=== PATIENT | male | born 1980 | race Hispanic/Latino ===

== ENCOUNTER 2021-12-31 10:36 | Outpatient (CLI) | payer OTHER ==
[2021-12-31] MEDS ORDERED: Iopamidol 370 76% 100 ML VIAL ONE (13:56)
== END 2021-12-31 10:37 | disposition home or self-care (01) ==
LOC: BICCT 10:36
PROVIDERS: ATTEND Student in an Organized Health Care Education/Training Program
DX: K63.89 Other specified diseases of intestine (principal)
CPT/HCPCS: 74177; 82565; Q9967

== ENCOUNTER 2022-03-16 06:09 | Day surgery (SDC) | payer BC ==
[2022-03-15 15:46] VITALS: BMI 27.3
[2022-03-16] MEDS ORDERED: Acetaminophen 500 MG TAB ONE (06:24)
[2022-03-16] MEDS ORDERED: Ketorolac Tromethamine 30 MG/ML VIAL ONE (06:24)
[2022-03-16] MEDS ORDERED: Propofol 500 MG/50 ML VIAL ONE (06:41)
[2022-03-16] MEDS ORDERED: fentaNYL PF 100 MCG/2 ML SYRINGE ONE (06:41)
[2022-03-16] MEDS ORDERED: Lidocaine 1% (PF) 30 ML VIAL ONE (06:42)
[2022-03-16] MEDS ORDERED: Bupivacaine/Epinephrine 0.25% 30 ML VIAL ONE (06:42)
[2022-03-16] MEDS ORDERED: Lidocaine 2% 6 ML SYR ONE (06:53)
[2022-03-16 07:16] LABS: #Eosinphils 0.4 thou/uL (0.0-0.7); #Monocytes 0.5 thou/uL (0.11-0.59); #Neutrophils 4.1 thou/uL (1.40-6.50); %Basophils 0.7 % (0.0-1.0); %Eosinophils 5.8 % (0.0-10.0); %Monocytes 6.7 % (0.0-10.0); %Neutrophils 58.8 % (42.0-75.0); Mean Corpuscular HGB CONC 32.2 g/dL (32.0-36.0); Mean Corpuscular Hemoglobin 27.8 pg (27.0-31.0); Mean Corpuscular Volume 86.4 fl (78.0-98.0); Mean Platelet Volume 9.6 fL (7.4-10.4); Platelet Count 223 thou/uL (130-400); RBC Distribution Width 14.4 % (11.5-14.5); Red Blood Cell (RBC) Count 4.32 mill/uL (4.70-6.10)
[2022-03-16] MEDS ORDERED: Sodium Chloride 0.9% 100 ML ONE (07:20)
[2022-03-16] MEDS ORDERED: CEFAZOLIN 2 GM VIAL ONE (07:20)
[2022-03-16 07:35] LABS: Anion Gap 10 mmol/L (10-20); BUN (Urea Nitrogen) 16 mg/dL (8.9-20.6); Calc. Creatinine Clearance 119 mL/min (70-130); Calcium 9.4 mg/dL (7.8-10.44); Carbon Dioxide 26 mmol/L (22-29); Chloride 103 mmol/L (98-107); Estimated GFR 108; Glucose 251 mg/dL (70-105); Potassium 4.4 mmol/L (3.5-5.1); Sodium 135 mmol/L (136-145)
== END 2022-03-16 09:11 | disposition home or self-care (01) ==
LOC: SDC 06:09
PROVIDERS: ATTEND Specialist
PROC: 02HV33Z Insertion of Infusion Device into Superior Vena Cava, Percutaneous Approach (ICD-10-PCS; principal; 2022-03-16)
PROC: 0JH60WZ Insertion of Totally Implantable Vascular Access Device into Chest Subcutaneous Tissue and Fascia, Open Approach (ICD-10-PCS; principal; 2022-03-16)
DX: C18.7 Malignant neoplasm of sigmoid colon (principal); Z79.84 Long term (current) use of oral hypoglycemic drugs
CPT/HCPCS: 71045; 80048; 85025; C1788; J1642; J1885; J2001; J2704; J3490

== ENCOUNTER 2022-09-15 14:58 | Outpatient (CLI) | payer BC ==
[2022-09-15 17:46] LABS: #Eosinphils 0.2 10x3/uL (0.0-0.5); #Monocytes 0.4 10x3/uL (0.0-1.1); %Basophils 0.4 % (0.0-2.0); %Eosinophils 3.3 % (0.0-6.0); %Lymphocytes 28.3 % (18.0-47.0); %Monocytes 8.4 % (0.0-10.0); %Neutrophils 59.2 % (40.0-75.0); Hemoglobin 14.9 g/dL (13.5-17.5); Mean Corpuscular HGB CONC 35.4 g/dL (32.0-36.0); Mean Corpuscular Hemoglobin 32.6 pg (27.0-33.0); Mean Corpuscular Volume 92.1 fl (81.2-95.1); Mean Platelet Volume 11.2 fl (7.4-10.4); Platelet Count 161 10x3/uL (150-450); RBC Distribution Width 11.7 % (11.5-14.5); Red Blood Cell (RBC) Count 4.57 10x6/uL (4.32-5.72); White Blood Cell (WBC) Count 5.1 10x3/uL (3.5-10.5)
[2022-09-15 17:54] LABS: Anion Gap 15 mmol/L (10-20); BUN (Urea Nitrogen) 13 mg/dL (8.9-20.6); Calc. Creatinine Clearance 0 mL/min (70-130); Calcium 9.3 mg/dL (7.8-10.44); Carbon Dioxide 24 mmol/L (22-29); Chloride 101 mmol/L (98-107); Estimated GFR 106; Glucose 359 mg/dL (70-105); Potassium 4.5 mmol/L (3.5-5.1); Sodium 135 mmol/L (136-145)
[2022-09-16 13:22] LABS: Hemoglobin A1c 9.4 % (4.0-6.0)
== END 2022-09-15 14:59 | disposition home or self-care (01) ==
LOC: LABBT 14:58
PROVIDERS: ATTEND Specialist
DX: Z01.818 Encounter for other preprocedural examination (principal); C18.7 Malignant neoplasm of sigmoid colon
CPT/HCPCS: 80048; 83036; 85025; 93005; 93010

== ENCOUNTER 2023-01-11 07:46 | Outpatient (CLI) | payer BC ==
[2023-01-11] MEDS ORDERED: MD-Gastroview 120 ML BOT ONE (11:23)
== END 2023-01-11 07:47 | disposition home or self-care (01) ==
LOC: RAD 07:46
PROVIDERS: ATTEND Specialist
DX: Z48.815 Encounter for surgical aftercare following surgery on the digestive system (principal); Z93.3 Colostomy status
CPT/HCPCS: 74280; Q9963

== ENCOUNTER 2023-03-09 12:14 | Outpatient (CLI) | payer BC ==
[2023-03-09 13:57] LABS: #Eosinphils 0.2 10x3/uL (0.0-0.5); #Monocytes 0.4 10x3/uL (0.0-1.1); #Neutrophils 3.6 10x3/uL (1.5-8.4); %Basophils 0.4 % (0.0-2.0); %Eosinophils 2.6 % (0.0-6.0); %Lymphocytes 26.6 % (18.0-47.0); %Monocytes 7.6 % (0.0-10.0); %Neutrophils 62.4 % (40.0-75.0); Hematocrit 42.7 % (38.8-50.0); Hemoglobin 15.3 g/dL (13.5-17.5); Mean Corpuscular HGB CONC 35.8 g/dL (32.0-36.0); Mean Corpuscular Hemoglobin 32.1 pg (27.0-33.0); Mean Corpuscular Volume 89.5 fl (81.2-95.1); Mean Platelet Volume 10.9 fl (7.4-10.4); Platelet Count 181 10x3/uL (150-450); RBC Distribution Width 11.6 % (11.5-14.5); Red Blood Cell (RBC) Count 4.77 10x6/uL (4.32-5.72); White Blood Cell (WBC) Count 5.7 10x3/uL (3.5-10.5)
[2023-03-09 14:10] LABS: Anion Gap 14 mmol/L (10-20); BUN (Urea Nitrogen) 15 mg/dL (8.9-20.6); Calc. Creatinine Clearance 0 mL/min (70-130); Calcium 9.4 mg/dL (7.8-10.44); Carbon Dioxide 24 mmol/L (22-29); Chloride 105 mmol/L (98-107); Estimated GFR 112; Glucose 162 mg/dL (70-105); Potassium 4.3 mmol/L (3.5-5.1); Sodium 139 mmol/L (136-145)
[2023-03-09 20:33] LABS: Hemoglobin A1c 6.5 % (4.0-6.0)
== END 2023-03-09 12:15 | disposition home or self-care (01) ==
LOC: LABBT 12:14
PROVIDERS: ATTEND Specialist
DX: Z01.812 Encounter for preprocedural laboratory examination (principal); Z93.3 Colostomy status
CPT/HCPCS: 80048; 83036; 85025

== ENCOUNTER 2023-03-09 12:30 | Inpatient (IN) | payer BC ==
[2023-03-14] MEDS ORDERED: Midazolam HCl 2 mg/2 ml Vial ONE (11:17)
[2023-03-14] MEDS ORDERED: fentaNYL 50 mcg/mL 1 mL Vial ONE ×3 (11:17→15:37)
[2023-03-14] MEDS ORDERED: Bupivacaine 0.25% HCL 30 ML VIAL ONE ×2 (11:18→12:47)
[2023-03-14] MEDS ORDERED: Acetaminophen 500 MG TAB ONE (11:21)
[2023-03-14] MEDS ORDERED: Ketorolac Tromethamine 30 MG/ML VIAL ONE (11:21)
[2023-03-14] MEDS ORDERED: EPINEPHrine 1 MG/ML VIAL ONE (12:46)
[2023-03-14] MEDS ORDERED: Fentanyl 250 MCG/5 ML VIAL ONE (12:48)
[2023-03-14] MEDS ORDERED: SUGAMMADEX SODIUM 200 MG/2 ML VIAL ONE (12:49)
[2023-03-14] MEDS ORDERED: Sodium Chloride 0.9% 100 ML ONE (12:54)
[2023-03-14] MEDS ORDERED: cefOXitin 2 GM VIAL ONE (12:54)
[2023-03-14] MEDS ORDERED: Promethazine HCl 25 MG/ML VIAL IM PRN ×2 (12:56→15:23)
[2023-03-14] MEDS ORDERED: Ondansetron HCl/PF 4 MG/2 ML Vial IVP PRN (12:56)
[2023-03-14] MEDS ORDERED: HYDROmorphone 2 MG/ML VIAL SLOW IVP PRN (12:56)
[2023-03-14] MEDS ORDERED: Lidocaine 1% PF 5 ML VIAL ONE (13:07)
[2023-03-14] MEDS ORDERED: PROPOFOL 200 MG/20 ML VIAL ONE (13:07)
[2023-03-14] MEDS ORDERED: Ondansetron PF 4 MG/2 ML Vial ONE (13:07)
[2023-03-14] MEDS ORDERED: Rocuronium Bromide 10 MG/ML (10ML VIAL) ONE (13:07)
[2023-03-14] MEDS ORDERED: hydrALAZINE 20 MG/ML VIAL SLOW IVP PRN (15:23)
[2023-03-14] MEDS ORDERED: Morphine 2 MG/ML VIAL SLOW IVP PRN (15:23)
[2023-03-14] MEDS ORDERED: Ondansetron PF 4 MG/2 ML Vial IVP PRN (15:23)
[2023-03-14] MEDS ORDERED: Morphine 4 MG/ML VIAL SLOW IVP PRN (15:23)
[2023-03-14] MEDS ORDERED: Ipratropium/Albuterol 3 ML NEB NEB PRN (15:23)
[2023-03-14] MEDS: metFORMIN 500 MG TAB PO SCH (18:40)
[2023-03-14] MEDS: Ketorolac Tromethamine 30 MG/ML VIAL IVP SCH ×2 (18:41→23:47)
[2023-03-14] MEDS: Sodium Chloride 0.9% 1,000 ML IV SCH ×2 (18:42→23:46)
[2023-03-14 20:28] VITALS: BMI 29.0
[2023-03-14] MEDS: Famotidine 20 MG TAB PO SCH (20:44)
[2023-03-14] MEDS: Famotidine/PF 20 mg/2ml Vial SLOW IVP SCH (20:45)
[2023-03-15] MEDS: Sodium Chloride 0.9% 1,000 ML IV SCH ×2 (02:53→11:29)
[2023-03-15 06:13] LABS: #Eosinphils 0.1 thou/uL (0.0-0.7); #Monocytes 0.5 thou/uL (0.11-0.59); #Neutrophils 5.4 thou/uL (1.40-6.50); %Basophils 0.1 % (0.0-1.0); %Eosinophils 0.7 % (0.0-10.0); %Monocytes 7.8 % (0.0-10.0); Hematocrit 38.6 % (42.0-52.0); Mean Corpuscular HGB CONC 36.3 g/dL (32.0-36.0); Mean Corpuscular Hemoglobin 32.9 pg (27.0-31.0); Mean Corpuscular Volume 90.6 fl (78.0-98.0); Mean Platelet Volume 10.5 fL (7.4-10.4); Platelet Count 146 10x3/uL (130-400); RBC Distribution Width 11.6 % (11.5-14.5); Red Blood Cell (RBC) Count 4.26 mill/uL (4.70-6.10); White Blood Cell (WBC) Count 6.9 10x3/uL (4.8-10.8)
[2023-03-15 06:33] LABS: Anion Gap 12 mmol/L (10-20); BUN (Urea Nitrogen) 10 mg/dL (8.9-20.6); Calc. Creatinine Clearance 145 mL/min (70-130); Calcium 8.1 mg/dL (7.8-10.44); Carbon Dioxide 23 mmol/L (22-29); Chloride 104 mmol/L (98-107); Estimated GFR 114; Glucose 220 mg/dL (70-105); Potassium 3.9 mmol/L (3.5-5.1); Sodium 135 mmol/L (136-145)
[2023-03-15] MEDS: Ketorolac Tromethamine 30 MG/ML VIAL IVP SCH ×4 (06:33→23:37)
[2023-03-15] MEDS: Famotidine 20 MG TAB PO SCH ×2 (08:46→19:39)
[2023-03-15] MEDS: metFORMIN 500 MG TAB PO SCH ×2 (08:46→16:50)
[2023-03-15] MEDS: glipiZIDE 10 MG TAB PO SCH (08:46)
[2023-03-15] MEDS: Famotidine/PF 20 mg/2ml Vial SLOW IVP SCH ×2 (09:47→19:38)
[2023-03-15] MEDS ORDERED: Glucagon 1 MG/ML KIT IM PRN (10:15)
[2023-03-15] MEDS ORDERED: Dextrose 5% in Water 1,000 ML IV PRN (10:15)
[2023-03-15] MEDS ORDERED: Dextrose 50% Abboject 50 ML SYRINGE SLOW IVP PRN (10:15)
[2023-03-15] MEDS: Insulin Regular 300 UNITS/3 ML VIAL SC PRN (12:57)
[2023-03-15] MEDS ORDERED: HYDROcodone/Acetaminophen 7.5/325 mg Tablet PO PRN (13:33)
[2023-03-15] MEDS: HYDROcodone/Acetaminophen 7.5/325 mg Tablet PO PRN (19:39)
[2023-03-16] MEDS: Sodium Chloride 0.9% 1,000 ML IV SCH (05:20)
[2023-03-16] MEDS: Ketorolac Tromethamine 30 MG/ML VIAL IVP SCH ×2 (05:29→11:52)
[2023-03-16] MEDS: HYDROcodone/Acetaminophen 7.5/325 mg Tablet PO PRN ×2 (08:40→13:06)
[2023-03-16] MEDS: glipiZIDE 10 MG TAB PO SCH (08:41)
[2023-03-16] MEDS: metFORMIN 500 MG TAB PO SCH (08:41)
[2023-03-16] MEDS: Famotidine 20 MG TAB PO SCH (08:41)
[2023-03-16 11:54] VITALS: BP 129/84; TEMP 98.5
[2023-03-16] MEDS: Insulin Regular 300 UNITS/3 ML VIAL SC PRN (11:59)
== END 2023-03-16 14:25 | disposition home or self-care (01) | DRG 331 ==
LOC: SURG A 03-14 11:02 → SURG B 03-14 16:20
PROVIDERS: ADMIT Specialist; ATTEND Specialist
PROC: 0DBB0ZZ Excision of Ileum, Open Approach (ICD-10-PCS; principal; 2023-03-14)
DX: Z43.2 Encounter for attention to ileostomy (principal); Z79.84 Long term (current) use of oral hypoglycemic drugs; Z79.899 Other long term (current) drug therapy; E11.9 Type 2 diabetes mellitus without complications; Z98.890 Other specified postprocedural states
CPT/HCPCS: 36415; 36416; 80048; 85025; 88304; A4314; A4649; J0171; J0694; J1650; J1815; J1885; J2250; J2270; J2405; J2704; J3010; J3490; J7050; S0020

== ENCOUNTER 2023-03-28 08:51 | Outpatient (CLI) | payer BC ==
[2023-03-28] MEDS ORDERED: Iopamidol 370 76% 100 ML VIAL ONE (10:48)
== END 2023-03-28 08:52 | disposition home or self-care (01) ==
LOC: CT 08:51
PROVIDERS: ATTEND Internal Medicine
DX: C20 Malignant neoplasm of rectum (principal); K76.9 Liver disease, unspecified; M79.9 Soft tissue disorder, unspecified; K76.0 Fatty (change of) liver, not elsewhere classified; Z90.49 Acquired absence of other specified parts of digestive tract
CPT/HCPCS: 71260; 74177

== ENCOUNTER 2023-04-22 10:30 | Outpatient (CLI) | payer BC | END 2023-04-22 10:31 | disposition home or self-care (01) | LOC: PET 10:30 | PROVIDERS: ATTEND Internal Medicine | DX: C20 Malignant neoplasm of rectum (principal); K76.9 Liver disease, unspecified; C78.7 Secondary malignant neoplasm of liver and intrahepatic bile duct | CPT/HCPCS: 78815; A9552 ==

== ENCOUNTER 2023-10-20 08:35 | Outpatient (CLI) | payer BC | END 2023-10-20 08:36 | disposition home or self-care (01) | LOC: BICCT 08:35 | PROVIDERS: ATTEND Internal Medicine | DX: C20 Malignant neoplasm of rectum (principal); C78.7 Secondary malignant neoplasm of liver and intrahepatic bile duct; K76.0 Fatty (change of) liver, not elsewhere classified; Z90.49 Acquired absence of other specified parts of digestive tract; Z98.890 Other specified postprocedural states | CPT/HCPCS: 71260; 74177; 82565 ==

== ENCOUNTER 2024-04-18 08:37 | Outpatient (CLI) | payer BC ==
[2024-04-18] MEDS ORDERED: Iopamidol 370 76% 100 ML VIAL ONE (14:56)
== END 2024-04-18 08:38 | disposition home or self-care (01) ==
LOC: CT 08:37
PROVIDERS: ATTEND Internal Medicine
DX: C20 Malignant neoplasm of rectum (principal); Z98.890 Other specified postprocedural states
CPT/HCPCS: 71260; 74177; Q9967

== ENCOUNTER 2025-04-22 09:15 | Outpatient (CLI) | payer BC ==
[2025-04-22] MEDS ORDERED: Iopamidol 370 76% 100 ML VIAL ONE (09:25)
== END 2025-04-22 09:16 | disposition home or self-care (01) ==
LOC: CT 09:15
PROVIDERS: ATTEND Internal Medicine
DX: Z12.12 Encounter for screening for malignant neoplasm of rectum (principal); C20 Malignant neoplasm of rectum
CPT/HCPCS: 71260; 74177; Q9967